=== PATIENT | male | born 1990 | race Caucasian/White ===

== ENCOUNTER 2024-12-24 01:30 | Emergency (ER) | payer OTHER ==
[~2024-12-24] VITALS: Ht 177.8 cm; Wt 111.1 kg
[2024-12-24] MEDS ORDERED: Morphine Sulfate 4 MG/1 ML Injection IV ONE (01:55)
[2024-12-24] MEDS ORDERED: Ondansetron HCl 2 MG / ML 2ML Vial ONE (02:01)
[2024-12-24] MEDS ORDERED: Ondansetron HCl 2 MG / ML 2ML Vial IV ONE (02:05)
[2024-12-24 02:15] LABS: Magnesium, Blood 1.6 mg/dL (1.6-2.4)
[2024-12-24 02:16] LABS: Anion Gap 10.0 mmol/L (3-11); Blood Urea Nitrogen 15.0 mg/dL (8-24); CO2, Blood 22.0 mmol/L (21-32); Calcium, Blood 8.7 mg/dL (8.5-10.1); Chloride, Blood 105.0 mmol/L (98-108); Creatinine, Blood 1.11 mg/dL (0.60-1.20); Glucose, Blood 141.0 mg/dL (70-99); Potassium, Blood 3.2 mmol/L (3.5-5.5); Sodium, Blood 134.0 mmol/L (136-145)
[2024-12-24 02:24] LABS: BASOPHILS ABSOLUTE AUTO 0.04 K/mm3 (0.00-0.23); BASOPHILS PERCENT AUTO 0 % (0-2); EOSINOPHILS ABSOLUTE AUTO 0.23 K/mm3 (0.00-0.68); EOSINOPHILS PERCENT AUTO 2 % (0-6); Hematocrit 44.4 % (37.0-53.0); Hemoglobin 15.5 g/dL (13.5-17.5); IMMATURE GRAN ABSOLUTE AUTO 0.07 K/mm3 (0.00-0.10); IMMATURE GRAN PERCENT AUTO 1 % (0-1); LYMPHOCYTES ABSOLUTE AUTO 1.41 K/mm3 (0.84-5.20); LYMPHOCYTES PERCENT AUTO 14 % (21-46); MONOCYTES ABSOLUTE AUTO 0.48 K/mm3 (0.16-1.47); MONOCYTES PERCENT AUTO 5 % (4-13); Mean Corpuscular HGB Conc 34.9 g/dL (31.5-36.5); Mean Corpuscular Volume 86 fL (80-100); NEUTROPHILS ABSOLUTE AUTO 7.93 K/mm3 (1.96-9.15); NEUTROPHILS PERCENT AUTO 78 % (41-73); NRBC ABSOLUTE 0.00 K/mm3 (0.00-0.02); NRBC Auto 0.0 /100 WBC (0.0-0.2); Platelet Count 226 K/mm3 (150-400); RDW Coefficient Variation 13.1 % (11.7-14.2); RDW Standard Deviation 41.0 fL (35.1-46.3)
[2024-12-24] MEDS ORDERED: IBUP600 PO (04:14)
[2024-12-24] MEDS ORDERED: ACET500 PO (04:14)
== END 2024-12-24 04:19 | disposition home or self-care (01) ==
LOC: ER 01:30
PROVIDERS: Emergency Medicine
DX: R07.2 Precordial pain (principal)
CPT/HCPCS: 71045; 80048; 83735; 84484; 85025; 85379; 93005; 93010; 96374; 96375; 99285-25; A9270; J2270; J2405